=== PATIENT | male | born 1950 | race Caucasian/White ===

== ENCOUNTER → 2021-04-29 08:26 | Outpatient (CLI) | payer OTHER, SELFPAY ==
--- NOTE | 2021-04-29 08:31 | RAD_ITS ---
STUDY: X-RAY - ESOPHAGUS (BARIUM SWALLOW) WITH FLUOROSCOPY REASON FOR EXAM: Male, 70 years old. DYSPHAGIA TECHNIQUE: 18 view(s) of the esophagus were obtained following swallowing of barium. FLUOROSCOPY TIME (if supplied): (29 seconds) minutes/seconds COMPARISON: None. FINDINGS: There is no demonstrated esophageal foreign body. There is no demonstrated stricture or mucosal abnormality. Normal gastroesophageal junction, without a demonstrated hiatal hernia. The patient ingested a 12 mm tablet of barium without any difficulty. There is atherosclerotic tortuosity of the aortic arch and descending thoracic aorta. Normal visualized pulmonary parenchyma. There are diffuse degenerative changes of the visualized thoracic spine. RAD/Esophagus Dual Contrast IMPRESSION: Normal plain film x-ray examination (barium swallow) of the esophagus. Electronically Signed: Arnulfo Acosta MD at 9:33 EDT , Service support ,
== END ==
PROVIDERS: PCP Family Medicine; Referring Provider Internal Medicine Gastroenterology; Visit Provider Internal Medicine Gastroenterology
DX: R13.10 Dysphagia, unspecified (principal)
CPT/HCPCS: 74221

== ENCOUNTER → 2023-03-06 | Outpatient (CLI) | payer MEDICARE, OTHER, SELFPAY ==
--- NOTE | 2023-03-06 12:45 | NM_ITS ---
CLINICAL: 72-year-old male with history of clinical gastroparesis. SEMI-SOLID PHASE 99m Tc SULFUR COLLOID GASTRIC EMPTYING STUDY COMPARISON: None available FINDINGS: The patient was administered 1.0 mCi of 99m Tc sulfur colloid mixed with oatmeal and consumed per os. Image acquisitions in the anterior-posterior projections were obtained for 60 minutes. There is prompt visualization of the stomach. There is no gastroesophageal reflux identified. First order kinetics are maintained throughout the duration of the acquisitions. The T ? linear fit was calculated to be 64.77 minutes, (Normal: 12-56 minutes). NM/Gastric Emptying Study IMPRESSION: 1. ABNORMAL 99m Tc sulfur colloid semi-solid phase (oatmeal) gastric emptying imaging examination. A. There is mild delayed semi-solid phase gastric emptying compared to normal controls with maintained first order kinetics throughout all components of the examination. (Apple et al, J Nucl Med Tech 38: 186, 2010). Electronically Signed: Fortino Goss, at 12:17 EDT ,
== END | disposition home or self-care (01) ==
LOC: NM 12:42
PROVIDERS: PCP Family Medicine; Referring Provider Internal Medicine Gastroenterology; Visit Provider Internal Medicine Gastroenterology
DX: K31.84 Gastroparesis (principal)
CPT/HCPCS: 78264; A9541

== ENCOUNTER 2023-07-08 07:38 | Day surgery (SDC) | payer MEDICARE, OTHER, SELFPAY ==
--- NOTE | 2023-07-08 07:51 | PCM.HP.BLA ---
History and Physical Date of Admission: 07/08/23 AYDEN ARCHIBALD, is a 72 M who presents to the office today to establish care. Pt established with this clinic 02.11.23 through referral from PCP. GI Dr. Wilson established previously:?Colonoscopy 10.13.13 Dr. Wilson for bowel habit change?advanced to cecum without polyps or visual changes noted.?Barium swallow 04.29.21?without abnormality noted.?EGD 05.07.21?pathology notes inflammation without EOE.? PCP OV 11.07.22 with dysphagia of dry food and meat requiring regurgitation and re-swallow for several months.?Biochemical ?CBC, CMP, LFT, lipids, triglycerides, TSH, Vit D25, Vit B12 without pertinent abnormality.? Pt reports issues with dysphagia worsening the past year or so. Some heartburn. States eating is difficult. Has to force food down. Post prandial bloating and pain. 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 Does not feel the urge to have a BM. Has to manually disimpact with finger. Uses miralax daily to keep stool soft. No blood seen. ROS Const Constitutional: No fatigue ENT ENT: Positive for difficulty swallowing Cardio Cardiology: Positive for leg pain with exertion Gastro GI: Positive for abdominal pain, bloating, change in bowel habits, difficulty swallowing and excessive flatus; No belching, change in stool character, coffee ground emesis, constipation, cramping, diarrhea, heartburn, feeling full early, incontinent of stools, Vomiting blood/hematemesis, Blood in stool, loose stools, Black,tarry stools, nausea/dyspepsia, pain with swallowing, vomiting or other Musc Musculoskeletal: Positive for back pain, muscle cramps, muscle weakness, leg pain at night and leg pain with exertion; No joint pain Skin Skin: No yellowing of the eye or itchy eyes Psych Psychiatric: No anxiety and No depression Endo Endocrine: No fatigue Aller/Imm Allergy/Immunologic: No itchy eyes [place]/Lymp Hematologic/Lymphatic: No easy bleeding or easy bruising Exam Const General: cooperative and comfortable Nutritional Appearance: average body habitus and well nourished [facility] Head: normal to inspection Ears: hearing grossly normal bilaterally Nose: external nose normal Face and sinus: normal facial exam Mouth: oral mucosae normal Throat: posterior oropharynx normal Eyes General: appearance normal, both eyes and all related structures Neck Neck: normal visual inspection Chest Chest palpation & inspection: normal inspection of the chest and normal palpation of entire chest wall Resp Effort & Inspection: normal respiratory effort Auscultation: Bilateral: Clear to Auscultation Cardio Palpation: normal PMI Rate: regular rate Rhythm: regular rhythm GI Inspection: normal to inspection Auscultation: normal bowel sounds Percussion: normal to percussion Palpation: no hepatosplenomegaly Skin General: no rashes or lesions noted Neuro General: patient alert Extrem General: normal to inspection Psych Affect: normal affect Assessment and Plan Assessment and Plan (1) Esophageal dysphagia: Status: Acute Plan: The differential diagnosis for his esophageal dysphagia would include esophageal dysmotility disorder secondary to a morphine pain pump. Narcotics are normal to affect peristalsis and in the upper esophageal type of neurologic tissue muscle is located in the upper esophageal sphincter. Also, the differential diagnosis does include bile induced esophagitis, less likely and appropriate esophageal relaxation versus erosive esophagitis causing a Schatzki's ring. We will get an analysis of the stomach believe most of the symptoms have started in the stomach secondary to narcotic induced gastroparesis. He will need to have a morphine pump. (2) Bloating: Status: Acute Plan: After he gets gastric emptying study and we will see if he needs a esophageal manometry plus or minus upper endoscopy (3) Fecal impaction: Status: Acute Plan: I recently had back surgery he has had to disimpact himself and use your evacuation on almost daily basis. I suspect he has a pelvic floor dysfunction secondary to neurologic damage from his surgery versus medication induced constipation. We talked about 60 marker test versus radiologic imaging with CT involving oral and possibly rectal contrast. We will wait to see what the upper GI work-up reveals before we pursue his lower GI problems. Orders: Orders Gastric Emptying Study Today K31.84 - Gastroparesis I have examined the patient and the H&P has been reviewed. There are no clinical changes since date of exam.
[2023-07-08] MEDS: Lactated Ringers 1,000 ML 15 ML IV (08:01)
[2023-07-08 08:03] VITALS: BP 102/73; PULSE 76; RESP 18; TEMP 36.1; O2SAT 98; BMI 25.3
[2023-07-08 09:18] VITALS: BP 102/73; BP 104/65; PULSE 58; RESP 18; TEMP 36.1; O2SAT 95
--- NOTE | 2023-07-08 09:18 | OP.COLON_ITS ---
Patient Name: Andrea Amor Procedure Date: 07/08/2023 8:39 AM Date of : 1950 Age: 73 Procedure: Colonoscopy Indications: Screening for colorectal malignant neoplasm Providers: Karthikeyan Waters DO Medicines: Monitored Anesthesia Care Patient Profile: This is a 73 year old male. Refer to note in patient chart for documentation of history and physical. Last Colonoscopy: more than 10 years ago. Complications: No immediate complications. Procedure: Pre-Anesthesia Assessment: - Prior to the procedure, a History and Physical was performed, and patient medications and allergies were reviewed. The patient is competent. The risks and benefits of the procedure and the sedation options and risks were discussed with the patient. All questions were answered and informed consent was obtained. Patient identification and proposed procedure were verified by the physician. Mental Status Examination: normal. Prophylactic Antibiotics: The patient does not require prophylactic antibiotics. Prior Anticoagulants: The patient has taken no anticoagulant or antiplatelet agents. After reviewing the risks and benefits, the patient was deemed in satisfactory condition to undergo the procedure. The anesthesia plan was to use monitored anesthesia care (MAC). Immediately prior to administration of medications, the patient was re-assessed for adequacy to receive sedatives. The heart rate, respiratory rate, oxygen saturations, blood pressure, adequacy of pulmonary ventilation, and response to care were monitored throughout the procedure. The physical status of the patient was re-assessed after the procedure. After I obtained informed consent, the scope was passed under direct vision. Throughout the procedure, the patient's blood pressure, pulse, and oxygen saturations were monitored continuously. The Colonoscope was introduced through the anus and advanced to the terminal ileum. The colonoscopy was performed without difficulty. The patient tolerated the procedure well. The quality of the bowel preparation was adequate. Scope In: 8:51:55 AM Scope Withdrawal Time 0 hours 13 minutes 17 seconds Scope Out: 9:09:24 AM Total Procedure Duration Time 0 hours 17 minutes 29 seconds Findings: The perianal and digital rectal examinations were normal. A few small and large-mouthed diverticula were found in the recto-sigmoid colon and sigmoid colon. The exam was otherwise without abnormality on direct and retroflexion views. Impression: - Diverticulosis in the recto-sigmoid colon and in the sigmoid colon. - The examination was otherwise normal on direct and retroflexion views. - No specimens collected. Recommendation: - Discharge patient to home. - Resume previous diet. - Continue present medications. - Repeat colonoscopy in 10 years for screening purposes. Procedure Code(s): --- Professional --- G0121, Colorectal cancer screening; colonoscopy on individual not meeting criteria for high risk CPT copyright 2021 [employer]. All rights reserved. The codes documented in this report are preliminary and upon autistic teacher review may be revised to meet current compliance requirements. Karthikeyan Waters DO 07/08/2023 9:17:53 AM This report has been signed electronically. Number of Addenda: 0 Note Initiated On: 07/08/2023 8:39 AM
--- NOTE | 2023-07-08 09:18 | OP.CCLET_ITS ---
07/08/2023 Gutierrez Bowman Re : Colonoscopy procedure for Andrea Zavalar Colby This procedure was performed on Saturday, July 08, 2023. My impressions and recommendations are as follows: Impressions : - Diverticulosis in the recto-sigmoid colon and in the sigmoid colon. - The examination was otherwise normal on direct and retroflexion views. - No specimens collected. Recommendations : - Discharge patient to home. - Resume previous diet. - Continue present medications. - Repeat colonoscopy in 10 years for screening purposes. My findings are described in the full procedure note, which is enclosed. If I can be of further assistance, please feel free to contact me at . Sincerely, Karthikeyan Waters, 07/08/2023 9:17:53 AM This report has been signed electronically.
[2023-07-08 09:20] VITALS: BP 102/73; BP 93/69; PULSE 62; RESP 18; O2SAT 96
[2023-07-08 09:25] VITALS: BP 102/73; BP 96/71; PULSE 57; RESP 18; O2SAT 96
[2023-07-08 09:30] VITALS: BP 102/73; BP 97/72; PULSE 61; RESP 18; TEMP 35.7; O2SAT 96
[2023-07-08 09:50] VITALS: BP 102/73
== END 2023-07-08 10:01 | disposition home or self-care (01) ==
LOC: EN 07:40 → AC 07:41
PROVIDERS: PCP Family Medicine; Referring Provider Family Medicine; Visit Provider Internal Medicine Gastroenterology
PROC: 0DJD8ZZ Inspection of Lower Intestinal Tract, Via Natural or Artificial Opening Endoscopic (ICD-10-PCS; CPT 45378; principal; 2023-07-08 08:40)
DX: Z12.11 Encounter for screening for malignant neoplasm of colon (principal); K56.41 Fecal impaction; K57.30 Diverticulosis of large intestine without perforation or abscess without bleeding; K31.84 Gastroparesis; Z79.82 Long term (current) use of aspirin; R13.19 Other dysphagia
CPT/HCPCS: G0121; J7120; J2405